=== PATIENT | male | born 1970 | race African-American/Black ===

== ENCOUNTER 2020-09-30 22:03 | Emergency (ER) | payer OTHER, SELFPAY ==
[2020-09-30 22:00] VITALS: BP 126/86; PULSE 73; RESP 20; O2SAT 99
--- NOTE | 2020-09-30 22:09 | PC.NURSE ---
Pt presents to ED via EMS with complaints of nausea and emesis that was sudden onset. Pt noted to have canned clam chowder approx half hour prior to onset of symptoms. Pt states he experienced approx 5-6 episodes of emesis. EMS states pt was diaphoretic upon their arrival and has had one episode of emesis while en route. EMS state emesis is yellow bile. 4mg of zofran administered and liter bolus infusing upon arrival to ED. EMS states pt presentation has improved and pt states he feels better. Pt denies sick contacts and is noted to be alert and oriented x4. Breathing even and unlabored and in no obvious distress at this time. Vitals are stable. Call button and personal items within reach. Pt advised to press call button for assistance.
[2020-09-30 22:12] VITALS: BP 126/86; PULSE 72; RESP 20; O2SAT 99
[2020-09-30 22:34] LABS: Basophils Absolute Auto 0.1 K/mm3 (0.0-0.1); Basophils Percent Auto 0.4 % (0.2-1.2); Eosinophils Percent Auto 0.2 % (0-4.4); Hematocrit 52.3 % (42.0-52.0); Hemoglobin 17.4 g/dL (14.0-18.0); Immature Granulocyte Absolute 0.06 K/mm3 (0.00-0.031); Immature Granulocyte Percent A 0.5 % (0-0.5); Lymphocytes Absolute Auto 1.62 K/mm3 (0.9-3.2); Lymphocytes Percent Auto 13.3 % (18.3-44.2); Mean Corpuscular HGB Conc 33.3 g/dl (32-36); Mean Corpuscular Hemoglobin 29.6 pg (26-34); Mean Corpuscular Volume 89.1 fl (80-100); Monocytes Absolute Auto 0.3 K/mm3 (0.1-0.6); Monocytes Percent Auto 2.8 % (2.6-8.5); Neutrophils Percent Auto 82.8 % (45.5-73.1); Platelet Count Result 267 k/mm3 (150-375); Red Blood Count 5.87 M/mm3 (4.6-6.20); Red Cell Distribution Width 13.8 % (11.5-14.5); White Blood Count 12.1 K/mm3 (4.5-10.0)
[2020-09-30 22:38] LABS: Alanine Aminotransferase 32 U/L (4-50); Albumin Level 4.8 g/dL (3.5-5.1); Alkaline Phosphatase 60 U/L (38-126); Anion Gap 8 mmol/L (8-16); Aspartate Amino Transferase 42 U/L (17-59); Bilirubin,Total 0.7 mg/dL (0.2-1.3); Blood Urea Nitrogen 14 mg/dL (9-20); Calcium 9.5 mg/dL (8.4-10.2); Carbon Dioxide 28 mmol/L (22-30); Chloride 105 mmol/L (98-107); Estimated CRCL calculation 65 ml/min; Estimated Glomerular Filt Rate > 60; Glucose 114 mg/dL (75-110); Lipase 112 U/L (23-300); Potassium 4.2 mmol/L (3.4-5.0); Sodium 141 mmol/L (137-145)
[2020-09-30] MEDS: SODIUM CHLORIDE 0.9% IV 1,000 ML 999 ML IV CONT (22:49)
[2020-09-30] MEDS: ONDANSETRON INJ 4 MG/2 ML VIAL IV PUSH (22:50)
[2020-09-30 22:56] VITALS: BP 127/81; PULSE 74
[2020-09-30 22:57] VITALS: BP 128/84; PULSE 85
[2020-09-30 22:58] VITALS: BP 132/81; PULSE 87
[2020-09-30 23:00] VITALS: BP 132/81; PULSE 87; RESP 19; O2SAT 100
[2020-09-30 23:27] LABS: Add Urine Microscopic? YES; Appearance Urine Cloudy (Clear); Bacteria Urine Trace /hpf; Bilirubin Urine Negative (Negative); Blood Urine Negative (Negative); Color Urine Amber (Yellow); Glucose Urine UA Negative (Negative); Ketones Urine Negative (Negative); Leukocyte Esterase Ur Negative LEU/UL (Negative); Mucus Urine Few /lpf; Nitrate Urine Negative (Negative); Protein Urine 1+ mg/dL (Negative); RBC Urine 0-2 /hpf (0-2); Specific Grav Ur 1.027 (1.001-1.035); Squamous Epithelial Cell Urine Rare /hpf (Few); WBC Urine 0-3 /hpf
--- NOTE | 2020-10-01 00:57 | ED.GENADULT ---
HPI - General Adult General Chief complaint: Nausea/Vomiting/Diarrhea Stated complaint: n/v Time Seen by Provider: 09/30/20 22:24 History of Present Illness HPI narrative: Patient is a 50-year-old gentleman who presents the emergency department with chief complaint of abdominal pain nausea and vomiting. Patient reports he ate some clam chowder from a can and then started having nausea and vomiting. The patient was given Zofran by EMS and IV fluids patient reports she is feeling little better now reports he has no true localizing pain at this point. Related Data Allergies Allergy/AdvReac Type Severity Reaction Status Date / Time No Known Allergies Allergy Verified 09/30/20 22:44 Review of Systems Review of Systems: Narrative: A 10 system review of systems was completed on the patient and is negative except for what is stated in the HPI. Nursing and ancillary documentation was reviewed. Exam Narrative: Exam Narrative: GENERAL: Well-appearing, well-nourished, and in no acute distress. HEAD: Normocephalic, atraumatic. EYES: PERRLA and EOMI. ENT: Nares clear, no rhinorrhea or epistaxis. Mucous membranes moist. NECK: Supple. CHEST: Clear to auscultation. No respiratory distress. HEART: Regular rate and rhythm. No murmur heard. Normal peripheral pulses. ABDOMEN: Soft, nontender, nondistended, normal active bowel sounds. EXTREMITIES: Normal range of motion. No edema. SKIN: Warm, dry, no rash. NEURO: No focal deficits. Alert and oriented x3. PSYCH: Normal mood and affect. Course Vital Signs Vital signs: Vital Signs Pulse Rate 73 09/30/20 22:00 Respiratory Rate 20 09/30/20 22:00 Blood Pressure 126/86 09/30/20 22:00 Pulse Oximetry 99 09/30/20 22:00 Pulse Rate 97 10/01/20 01:07 Respiratory Rate 17 10/01/20 01:07 Blood Pressure 103/54 L 10/01/20 01:07 Pulse Oximetry 99 10/01/20 01:07 Medical Decision Making Vital Signs Vital Signs: Vital Signs Pulse Rate 73 09/30/20 22:00 Respiratory Rate 20 09/30/20 22:00 Blood Pressure 126/86 09/30/20 22:00 Pulse Oximetry 99 09/30/20 22:00 Pulse Rate 97 10/01/20 01:07 Respiratory Rate 17 10/01/20 01:07 Blood Pressure 103/54 L 10/01/20 01:07 Pulse Oximetry 99 10/01/20 01:07 Lab Data Result diagrams: 09/30/20 22:18 09/30/20 22:18 Labs: Lab Results 09/30/20 09/30/20 09/30/20 Range/Units 22:18 22:18 23:04 WBC 12.1 H (4.5-10.0) K/mm3 RBC 5.87 (4.6-6.20) M/mm3 Hgb 17.4 (14.0-18.0) g/dL Hct 52.3 H (42.0-52.0) % MCV 89.1 (80-100) fl MCH 29.6 (26-34) pg MCHC 33.3 (32-36) g/dl RDW 13.8 (11.5-14.5) % Plt Count 267 (150-375) k/mm3 MPV 9.0 (7.4-10.4) fl Immature Gran % (Auto) 0.5 (0-0.5) % Neut % (Auto) 82.8 H (45.5-73.1) % Lymph % (Auto) 13.3 L (18.3-44.2) % Ramsey % (Auto) 2.8 (2.6-8.5) % Eos % (Auto) 0.2 (0-4.4) % Baso % (Auto) 0.4 (0.2-1.2) % Lymph # (Auto) 1.62 (0.9-3.2) K/mm3 Ramsey # (Auto) 0.3 (0.1-0.6) K/mm3 Eos # (Auto) 0.0 (0-0.3) K/mm3 Baso # (Auto) 0.1 (0.0-0.1) K/mm3 Abs Immat Gran (auto) 0.06 H (0.00-0.031) K/mm3 Absolute Neuts (auto) 10.0 H (1.3-6.7) K/mm3 Absolute Nucleated RBC 0.0 (0.0-0.012) K/mm3 Nucleated RBC % 0.0 (0.0-0.2) % Sodium 141 (137-145) mmol/L Potassium 4.2 (3.4-5.0) mmol/L Chloride 105 (98-107) mmol/L Carbon Dioxide 28 (22-30) mmol/L Anion Gap 8 (8-16) mmol/L BUN 14 (9-20) mg/dL Creatinine 1.10 (0.7-1.3) mg/dL Estim Creat Clear Calc 65 ml/min Estimated GFR > 60 (59 - ) Glucose 114 H (75-110) mg/dL Calcium 9.5 (8.4-10.2) mg/dL Total Bilirubin 0.7 (0.2-1.3) mg/dL AST 42 (17-59) U/L ALT 32 (4-50) U/L Alkaline Phosphatase 60 (38-126) U/L Total Protein 9.0 H (6.3-8.2) g/dL Albumin 4.8 (3.5-5.1) g/dL Lipase 112 (23-300) U/L Urine Color Sue (Yellow
[2020-10-01 01:07] VITALS: BP 103/54; PULSE 97; RESP 17; O2SAT 99
--- NOTE | 2020-10-01 01:08 | PC.NURSE ---
Pt resting on cart. Vitals are stable, breathing even and unlabored and pt in no obvious distress and voices that he is feeling better.
--- NOTE | 2020-10-01 01:12 | PC.NURSE ---
EDMD presented to bedside and updated pt on poc; all questions and concerns addressed.
--- NOTE | 2020-10-01 01:12 | PC.NURSE ---
Pt back in room resting on cart in its lowest position with call button and personal items within reach.
== END 2020-10-01 01:30 | disposition home or self-care (01) ==
PROVIDERS: Emergency Provider Emergency Medicine
DX: R11.2 Nausea with vomiting, unspecified (principal)
CPT/HCPCS: 36415; 80053; 81001; 83690; 85025; 96361; 96374; 99284; J2405; J7030